=== PATIENT | female | born 1990 | race African-American/Black ===

== ENCOUNTER 2021-01-06 07:00 | Emergency (ER) | payer MEDICARE, MEDICAID ==
[~2021-01-06] VITALS: Ht 165.1 cm; Wt 91.0 kg
[2021-01-06] MEDS ORDERED: TOPUD PO (08:49)
[2021-01-06] MEDS ORDERED: SULF1TAB48 PO (08:49)
[2021-01-06 09:31] VITALS: BP 121/65
== END 2021-01-06 09:31 | disposition home or self-care (01) ==
LOC: ER 07:00
DX: M79.5 Residual foreign body in soft tissue (principal); J45.909 Unspecified asthma, uncomplicated; Z88.0 Allergy status to penicillin
CPT/HCPCS: 73120; 81025; 99283